=== PATIENT | male | born 1985 ===

== ENCOUNTER 2016-10-18 17:15 | Inpatient (IN) | payer OTHER ==
[~2016-10-18] VITALS: Ht 182.9 cm; Wt 100.0 kg
[2016-10-19] MEDS ORDERED: Benzocaine-Menthol Lozenge 2/Pkg PO PRN (02:10)
[2016-10-19] MEDS ORDERED: Magnesium Hydroxide 10 mL Oral Concentration PO PRN (02:10)
[2016-10-19] MEDS: LORazepam 1 mg Tablet PO PRN ×3 (02:42→10:49)
--- NOTE | 2016-10-19 03:22 | NUR ---
Nursing Admit Note Patient arrival from [place] at 0105 with security screener. Pt is on a 72 hour PASTORA initiated on 10/18/16. Ellis goes by name Rigo is 30 y/o male whom has been deemed danger to self r/t manic and psychotic behavior. Report symptoms ongoing greater than seven days. Pt is unable to give me any meaningful history. He rambles on and on about various disconnected ideas such as work, hearing voices in his head and inability to manage his medications. Pt reports he drinks at least six beer a day, "as much as I can get". Pt appears very anxious at times and believes he may be withdrawing. Pt hesitant and tearful when approached with new medications, easily overwhelmed.
[2016-10-19] MEDS ORDERED: CITA20TA11 PO (04:03)
[2016-10-19] MEDS ORDERED: CLOT30SO TOPICAL (04:04)
[2016-10-19] MEDS ORDERED: FLUT16SP NS (04:05)
[2016-10-19] MEDS ORDERED: HYDR-3090 PO (04:08)
[2016-10-19] MEDS ORDERED: LITH300T2 PO (04:10)
[2016-10-19] MEDS ORDERED: OLAN20TA16 PO (04:10)
[2016-10-19] MEDS ORDERED: OMEP20CA11 PO (04:13)
[2016-10-19] MEDS: hydrOXYzine Pamoate 25 mg Capsule PO PRN (08:03)
[2016-10-19 13:25] VITALS: BP 128/80; PULSE 95
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
--- NOTE | 2016-10-19 18:51 | NUR ---
[id number]. nurs. Pt c/o foot pain and given tylenol 650mg at 0802, with vistaril 50mg for anxiety, stating that he preferred that to a "benzo" with zyprexa 10mg for confused agitated presentation. Pt appearing overwhelmed with difficulty expressing himself, increasingly anxious with latency and needed med and given ativan 2mg at 1049. Pt wandering with some discomfort and confused about being here. Pt given phone to call family and assisted with making calls, then resting on bed. P:CNCP
--- NOTE | 2016-10-19 19:49 | NUR ---
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 He denies S/I and H/I. He reports hearing voices. He denies visual hallucinations. Depression is 10/10 and anxiety is 4-5/10. A: Patient is cooperative, tearful, racing thoughts, delusional, paranoid, disorganized, poor insight, poor judgment. P: Follow care plan, coordinate out-patient providers, monitor behavior.
[2016-10-20] MEDS: LORazepam 1 mg Tablet PO PRN ×2 (03:33→19:55)
--- NOTE | 2016-10-20 04:07 | NUR ---
Nursing Noc Pt noted to sleep for about six hours then awoke c/o startling awake feeling and foot discomfort. Medicated for both and given snack. Pt presented tearful initially and anxious but appeared to calm and relax in DR. Continuing to monitor mood behavior and emotional state. CP Q15 minute safety checks.
--- NOTE | 2016-10-20 05:30 | NUR ---
NOC OBS Pt asleep [id number]. Pleasant but wanting to know where he was and how he got here/when he could leave. Staff reassured him of place and that the DR would be in in the morning. Pt observed every 15 minutes as ordered.
--- NOTE | 2016-10-20 13:38 | PCM.PNPSY ---
Subjective Date of Service Oct 20, 2016 Subjective I spent 30 minutes both reviewing his treatment plan and providing supportive and educational psychotherapy. I spent more than 50% of the time counseling the patient. I reviewed the treatment plan with the patient and discussed options available including the potential risks, benefits and side effects. Ellis reports difficulty with high anxiety 8 out of 10 and still struggling with thought disorganization. The Staff reports that he has been active and is participating well in one-to-one unit and group activities. He slept 5 hours. He denies medication side effects. Patient was able to identify his medications and what they were used to treat. Current Medications Current Medications Acetaminophen 650 mg Q4H PRN PO Last administered on 10/20/16 03:33; Admin Dose 650 MG; Start 10/19/16 at 02:10 Hydroxyzine Pamoate 50 mg Q4H PRN PO Last administered on 10/19/16 08:03; Admin Dose 50 MG; Start 10/19/16 at 02:10 Lorazepam 1-2 MG Q4H PRN PO Last administered on 10/20/16 03:33; Admin Dose 2 MG; Start 10/19/16 at 02:15 Nicotine 1 patch DAILY TOPICAL Last administered on 10/20/16 09:11; Admin Dose 1 PATCH; Start 10/19/16 at 08:30 Nicotine Polacrilex 2 mg Q6H PRN BUCCAL Last administered on 10/19/16 08:01; Admin Dose 2 MG; Start 10/19/16 at 02:15 Olanzapine 10 mg BID PO Last administered on 10/20/16 08:14; Admin Dose 10 MG; Start 10/19/16 at 20:30 Olanzapine 10 mg Q4H PRN PO Last administered on 10/19/16 08:05; Admin Dose 10 MG; Start 10/19/16 at 02:15 Mental Status Exam Appearance: Neat/well groomed Attitude: Guarded Behavior: Distractible Affect: Labile Mood: Expansive, Anxious, Fearful Thought Process/Associations: Goal Directed Speech Production: Normal Speech Rate: Normal Speech Articulation: Normal Thought Content: Perseveration Danger to Self/Suicidal Ideati: Passive, Plan Danger to Others: None Orientation: Person, Place, Date, Situation Memory: Grossly Intact Estimate Intellectual Function: Average Basis for IQ estimate: Awareness current events, Word use/vocabulary, Educational history Attention/Concentration & Cogn: Impaired Insight: Limited Judgement: Limited Mental Health Plan The patient is a 30-year-old single male who 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 He was in fact using drugs (cocaine narcotics and cannabis) and continues to use basically anything that is put in front of him including marijuana, cocaine, narcotics and especially over the counter cough syrup such as NyQuil. All of his symptoms could be explained by the substance use but there is also a diagnosis of schizophrenia in his chart. It is possible that with sobriety and close supervision that symptoms of schizophrenia may also be present. At this time he is so impaired and the recreational drugs are such an issue that we will need to re-evaluate him once he has recovered from current episode. He appears to be making slow but gradual progress over the last 48 hours. [place] AXIS I 1. Preliminary substance induced mood and thought disorder due to THC, narcotics, cocaine and xhvt-hkb-wecveey cough syrup. 2. Rule out schizophrenia. 3. Polysubstance abuse. AXIS II Defer. AXIS III None. AXIS IV Moderate. AXIS V Current global assessment of functioning equal to 30. Medications Treatments Patient is being provided with a high degree of safety through the structure and active adult engagement. We will focus on developing improved coping skills and identifying stressors that may have led to current episode. We will attempt to: Integrate into therapeutic groups, milieu and individual therapy. Maintain in a closely monitored and structured unit Provide low-stimulation environment Obtain collateral data to assist in treatment planning Assess degree of lability of affect and impulse control Complete safety plan Decrease frequency of relapse and need for re-hospitalization Denies thoughts of harm to self Establish a consistent sleep pattern Medication effective in stabilization of mood and/or thought process Reduce the risk of imminent harm to self and/or others by providing a safe environment Tolerates medication without side effects Patient will be on the following psychiatric medications: Zyprexa 10 mg twice a day Education: Educate patient about recreational drug use as an etiology Educate about metabolic etiologies related to obesity Address patient's legal status Patient is on a 72 hour involuntary treatment hold. Patient will be given the opportunity to talk to her biology instructor and the tuckpointer Monday morning Disposition: Home, Duncan Antonio MD Oct 20, 2016 13:38
--- NOTE | 2016-10-20 17:30 | NUR ---
[id number]. nurs. S: "I know I have to stay here and take my medication until I am better...I know I have got to stop using drugs.. O: Pt states that he has been experiencing AHs that are negative but that various unit activities are effective for distracting him, such as ball and video games, playing cards by self. Pt states that he has been in touch with family and they are encouraging him to stay and get help. Pt states that some of the periodic loud yelling behaviour of peers triggers him and he needs to get away from it. Pt gets tearful when talking of 3 children and gets angry and indignant re. losing his employment. Some of pt's conversation tangential and confusing, some quick changes of mood, some childlike presentation. Pt reports that he feels that he is much better than when admitted. P:CNCP
--- NOTE | 2016-10-20 18:58 | NUR ---
Digital Sales Manager/Counselor: S/O: Patient only slept 5.75+ hours last night as per staff. He denies S/I and H/I. He also denies auditory and visual hallucinations. A: Patient is cooperative, guarded, distractable, labile, anxious, fearful, limited insight, limited judgment. P: Follow care plan, coordinate out-patient providers, monitor behavior.
--- NOTE | 2016-10-20 19:26 | NUR ---
Obs Dayshift Pt is calm, participates in groups and activities on the unit. Pt is labile, crying and sad then quickly smiling. Pt is guarded, polite, calm, engaged. Pt appears to be responding to IS at times, but denies it. Pt is frustrated that he is still here and would like to get back home soon. Engages well w/ peers and staff but is superficial and reserved. Good ADL's, Good meals
[2016-10-21] MEDS: LORazepam 1 mg Tablet PO PRN ×3 (00:19→20:26)
--- NOTE | 2016-10-21 04:40 | NUR ---
Nursing Noc Patient presents anxious, labile thought content, delusional of past. Seeks out staff to talk, taking available PRNs as available. Noted to have difficulty getting to sleep this shift. Continuing to monitor mood, behavior, and emotional state. Q15 minuted safety checks.
[2016-10-21 10:08] VITALS: BP 135/83; PULSE 107; RESP 16
--- NOTE | 2016-10-21 11:43 | NUR ---
Nursing Day Shift S: "I'm having more anxiety because I'll be heading into court soon." O: Rating anxiety at a 5/10 with the above comment. States he will alert this staff if he needs any medication for it after lunch. Rates depression at a 5/10. Denies harmful thoughts and hallucinations. Has been out in the dining room much of the AM. Social with peers. Good appetite. Interactive on approach. A: Moderate anxiety. Pleasant mood. Talkative. P: CPOC. Monitor mood and behavior.
--- NOTE | 2016-10-21 12:34 | PCM.PNPSY ---
Subjective Date of Service Oct 21, 2016 Subjective I spent 30 minutes both reviewing his treatment plan and providing supportive and educational psychotherapy. I spent more than 50% of the time counseling the patient. I reviewed the treatment plan with the patient and discussed options available including the potential risks, benefits and side effects. Ellis reports continued difficulty with high anxiety 8 out of 10 and still struggling with thought disorganization. Quite emotionally labile throughout my session. The Staff reports that he has been active and is participating well in one-to-one unit and group activities. He slept 6 hours over the past 24. He denies medication side effects. Patient was able to identify his medications and what they were used to treat. Current Medications Current Medications Olanzapine 10 mg BID PO Last administered on 10/21/16t 07:57; Admin Dose 10 MG; Start 10/19/16 at 20:30 Mental Status Exam Appearance: Neat/well groomed Attitude: Guarded Behavior: Distractible Affect: Labile Mood: Expansive, Anxious, Fearful Thought Process/Associations: Goal Directed Speech Production: Normal Speech Rate: Normal Speech Articulation: Normal Thought Content: Perseveration Danger to Self/Suicidal Ideati: Passive, Plan Danger to Others: None Orientation: Person, Place, Date, Situation Memory: Grossly Intact Estimate Intellectual Function: Average Basis for IQ estimate: Awareness current events, Word use/vocabulary, Educational history Attention/Concentration & Cogn: Impaired Insight: Limited Judgement: Limited Mental Health Plan The patient is a 30-year-old single male 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 He was in fact using drugs (cocaine narcotics and cannabis) and continues to use basically anything that is put in front of him including marijuana, cocaine, narcotics and especially over the counter cough syrup such as NyQuil. All of his symptoms could be explained by the substance use but there is also a diagnosis of schizophrenia in his chart. It is possible that with sobriety and close supervision that symptoms of schizophrenia may also be present. At this time he less impaired and the main issue and discharge will be how he deals with recreational drugs. He appears to be making slow but gradual progress over the last 72 hours. [place] AXIS I 1. Preliminary substance induced mood and thought disorder due to THC, narcotics, cocaine and rijm-lih-rowtlpp cough syrup. 2. Rule out schizophrenia. 3. Polysubstance abuse. AXIS II Defer. AXIS III None. AXIS IV Moderate. AXIS V Current global assessment of functioning equal to 35. Medications Treatments Patient is being provided with a high degree of safety through the structure and active adult engagement. We will focus on developing improved coping skills and identifying stressors that may have led to current episode. We will attempt to: Integrate into therapeutic groups, milieu and individual therapy. Maintain in a closely monitored and structured unit Provide low-stimulation environment Obtain collateral data to assist in treatment planning Assess degree of lability of affect and impulse control Complete safety plan Decrease frequency of relapse and need for re-hospitalization Denies thoughts of harm to self Establish a consistent sleep pattern Medication effective in stabilization of mood and/or thought process Reduce the risk of imminent harm to self and/or others by providing a safe environment Tolerates medication without side effects Patient will be on the following psychiatric medications: Zyprexa 10 mg twice a day Education: Educate patient about recreational drug use as an etiology Educate about metabolic etiologies related to obesity Address patient's legal status Patient is on a 72 hour involuntary treatment hold that was postponed until next Monday. Patient will be given the opportunity to talk to her wafer cleaner and the sr. payroll processor Monday Disposition: [place], Duncan Antonio MD Oct 21, 2016 12:33 Duncan Fernandez MD Oct 21, 2016 12:33
[2016-10-21] MEDS: Alum-Mag Hydrox-Simeth 30 mL Suspension PO PRN (15:55)
[2016-10-21] MEDS: hydrOXYzine Pamoate 25 mg Capsule PO PRN (17:44)
--- NOTE | 2016-10-21 18:03 | NUR ---
[facility] [[email or web address]] Day Shift Pt maintained behavioral control throughout the shift. Pt affect appears mostly flat, though appears much brighter when engaged with staff and peers. Pt affect is occasionally labile, ranging from mildly tearful to excitable. Pt spends most of the shift engaging in unit activities, interacting with staff and peers, and watching TV in the dining room. Pt attended all meals and ate approx 100% of all meals.
--- NOTE | 2016-10-21 18:57 | NUR ---
Compliance Technician/Counselor: S: "My meds are helping me a lot." O: Patient only slept 3+ hours last night as per staff. He denies S/I and H/I. He also denies auditory and visual hallucinations. Depression is "mild" and anxiety is "I'm fine with the anxiety meds." When asked his mood, patient stated, "Good." A: Patient is cooperative, guarded, distractable, labile, anxious, limited insight, limited judgment. P: Follow care plan, coordinate out-patient providers.
--- NOTE | 2016-10-22 06:00 | NUR ---
Nursing Note 7pm to 7am Relocation Commissioner Pt visible on unit, calm, pleasant and cooperative. Pt inquired about the medications he was taking and was provided with med education. Pts thoughts organized, linear and logical. Speech normal rate and rhythm. No psychotic symptoms elicited or observed. Pt given Ambien 10mg for sleep and Ativan 1mg po prn at 2025 and slept 6.5 hours. Monitored pt with q15 minute checks for safety, location and accountability
[2016-10-22] MEDS: LORazepam 1 mg Tablet PO PRN ×3 (07:55→21:08)
[2016-10-22] MEDS: hydrOXYzine Pamoate 25 mg Capsule PO PRN (07:56)
[2016-10-22 10:08] VITALS: BP 152/89; PULSE 107; RESP 16
--- NOTE | 2016-10-22 13:07 | PCM.PNPSY ---
Subjective Date of Service Oct 22, 2016 Subjective I spent 20 minutes both reviewing his treatment plan and providing supportive and educational psychotherapy. I spent less than 50% of the time counseling the patient as he was quite irritable and not wanting to speak. He is angry about the correction process and needing to stay until Monday. I reviewed the treatment plan with the patient and discussed options available including the potential risks, benefits and side effects. Ellis reports that he will not talk with me until court on Monday. He appears to be still struggling with thought disorganization and emotional lability likely due to withdrawals from polysubstance abuse. He was Quite emotionally labile throughout my session. The Staff reports that he has been active and is participating well in one-to-one unit and group activities. He slept 8 hours over the past 24. He denies medication side effects. Patient was able to identify his medications and what they were used to treat. Mental Status Exam Vital Signs Vital Signs Date Time Temp Pulse Resp B/P Pulse Ox O2 Delivery O2 Flow Rate FiO2 10/22/16 10:08 36.4 107 16 152/89 Appearance: Neat/well groomed Attitude: Guarded Behavior: Distractible Affect: Labile Mood: Expansive, Anxious, Fearful Thought Process/Associations: Goal Directed Speech Production: Normal Speech Rate: Normal Speech Articulation: Normal Thought Content: Perseveration Danger to Self/Suicidal Ideati: Passive, Plan Danger to Others: None Orientation: Person, Place, Date, Situation Memory: Grossly Intact Estimate Intellectual Function: Average Basis for IQ estimate: Awareness current events, Word use/vocabulary, Educational history Attention/Concentration & Cogn: Impaired Insight: Limited Judgement: Limited Mental Health Plan The patient is a 30-year-old single male who 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 He is very proud of the fact that he is a STRUCTURAL METAL WORKER and was extremely upset when he was recently fired for suspected drug use. He was in fact using drugs (cocaine narcotics and cannabis) and continues to use basically anything that is put in front of him including marijuana, cocaine, narcotics and especially over the counter cough syrup such as NyQuil. All of his symptoms could be explained by the substance use but there is also a diagnosis of schizophrenia in his chart. It is possible that with sobriety and close supervision that symptoms of schizophrenia may also be present. At this time he less impaired and the main issue and discharge will be how he deals with recreational drugs. Ellis was irritable and appears to be withdrawing from different street drugs. Was difficult to engage him In any meaningful way. [place] AXIS I 1. Preliminary substance induced mood and thought disorder due to THC, narcotics, cocaine and foks-jil-yjyfbik cough syrup. 2. Rule out schizophrenia. 3. Polysubstance abuse. AXIS II Defer. AXIS III None. AXIS IV Moderate. AXIS V Current global assessment of functioning equal to 35. Medications Treatments Patient is being provided with a high degree of safety through the structure and active adult engagement. We will focus on developing improved coping skills and identifying stressors that may have led to current episode. We will attempt to: Integrate into therapeutic groups, milieu and individual therapy. Maintain in a closely monitored and structured unit Provide low-stimulation environment Obtain collateral data to assist in treatment planning Assess degree of lability of affect and impulse control Complete safety plan Decrease frequency of relapse and need for re-hospitalization Denies thoughts of harm to self Establish a consistent sleep pattern Medication effective in stabilization of mood and/or thought process Reduce the risk of imminent harm to self and/or others by providing a safe environment Tolerates medication without side effects Patient will be on the following psychiatric medications: Zyprexa 10 mg twice a day Education: Educate patient about recreational drug use as an etiology Educate about metabolic etiologies related to obesity Address patient's legal status Patient is on a 72 hour involuntary treatment hold that was postponed until next Monday. Patient will be given the opportunity to talk to her hot mill tin roller and the ribbon hanking machine operator Monday Disposition: Home, Duncan Antonio MD Oct 22, 2016 13:06
--- NOTE | 2016-10-22 13:52 | NUR ---
Barbering Instructor./ c.m. S.:"My mood is good, I'm just sad because I miss my children... I just want to go home." O.: met with pt. in a private room. He slept well last night. He denied SI/HI, denied AH/VH or paranoid/delusional thoughts. He denied anxiety and rated depression at 5/10. He talked about his children, his ex-g.f.s and his family that he doesn't like much. He wasn't sure if it was a good idea to go back to [place] or not. He didn't believe that he had a problem with drugs. He believed that his "family has a lot of mental health issues, they just don't want to talk about it." He believed that he didn't need to be here. He also believed that he needed more meds for his medical issues related to pain. Pt.'s sister called here in the morning and she said that she would be able to come to pick pt. up at time of discharge. Pt. was in and out of his room during the day. He is talking to selected peers. A.: pt. is cooperative, tearful at times, meds seeking. He has a flat affect and a good eye contact. P.: monitor behavior, check Safety plan; follow care plan.
--- NOTE | 2016-10-22 18:36 | NUR ---
Nursing Dayshift: S: "I'm having a really good lunch." O: Patient out of his room much of the shift. Social with peers. Bright and cheery attitude. Med compliant. Attending unit activities. A: Pleasant. P: CPOC. Monitor mood and behavior.
[2016-10-23] MEDS: Alum-Mag Hydrox-Simeth 30 mL Suspension PO PRN ×2 (04:47→15:12)
--- NOTE | 2016-10-23 05:33 | NUR ---
Nursing Note 7pm- 7am Napkin Band Wrapper Pt Visible on unit, superficially smiling, pleasant, calm and cooperative. Pt reported he was anxious for discharge and was just "Laying low". Pt reported anxiety 01/02 requested Ativan 2mg po prn with HS meds and received Ambien 10mg for sleep. Pt denies depressive symptoms, denies A/VH. Thoughts organized and linear. Monitored pt. q 15 minutes for safety, location and accountability. Pt slept soundly until 0445 when he woke up for the day. Slept total of 6.25 hours
[2016-10-23 08:40] VITALS: BP 142/90; PULSE 109; RESP 17
--- NOTE | 2016-10-23 13:16 | PCM.PNPSY ---
Subjective Date of Service Oct 23, 2016 Subjective I spent 20 minutes both reviewing his treatment plan and providing supportive and educational psychotherapy. I spent less than 50% of the time counseling the patient as he remains quite irritable and not wanting to speak. He is angry about the [facility] process and needing to stay until Monday. I reviewed the treatment plan with the patient and discussed options available including the potential risks, benefits and side effects. Ellis reports that he is still struggling with thought disorganization and emotional lability likely due to withdrawals from polysubstance abuse. He was emotionally labile throughout my session. The Staff reports that he has been active and is participating well in one-to-one unit and group activities. He slept 8 hours over the past 24. He denies medication side effects. Patient was able to identify his medications and what they were used to treat. Mental Status Exam Appearance: Neat/well groomed Attitude: Guarded Behavior: Distractible Affect: Labile Mood: Expansive, Anxious, Fearful Thought Process/Associations: Goal Directed Speech Production: Normal Speech Rate: Normal Speech Articulation: Normal Thought Content: Perseveration Danger to Self/Suicidal Ideati: None Danger to Others: None Orientation: Person, Place, Date, Situation Memory: Grossly Intact Estimate Intellectual Function: Average Basis for IQ estimate: Awareness current events, Word use/vocabulary, Educational history Attention/Concentration & Cogn: Impaired Insight: Limited Judgement: Limited Mental Health Plan The patient is a 30-year-old single male 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 He was in fact using drugs (cocaine narcotics and cannabis) and continues to use basically anything that is put in front of him including marijuana, cocaine, narcotics and especially over the counter cough syrup such as NyQuil. All of his symptoms could be explained by the substance use but there is also a diagnosis of schizophrenia in his chart. It is possible that with sobriety and close supervision that symptoms of schizophrenia may also be present. At this time he less impaired, continues to make slow but steady progress and the main issue after discharge will be how he deals with a serious addiction to recreational drugs. Ellis was irritable and appears to be withdrawing from different street drugs. It has been difficult to engage him in any meaningful way. He will likely be ready For discharge in 48-72 hours. [place] AXIS I 1. Preliminary substance induced mood and thought disorder due to THC, narcotics, cocaine and cnnr-ohq-aicdirl cough syrup. 2. Rule out schizophrenia. 3. Polysubstance abuse. AXIS II Defer. AXIS III None. AXIS IV Moderate. AXIS V Current global assessment of functioning equal to 35. Medications Treatments Patient is being provided with a high degree of safety through the structure and active adult engagement. We will focus on developing improved coping skills and identifying stressors that may have led to current episode. We will attempt to: Integrate into therapeutic groups, milieu and individual therapy. Maintain in a closely monitored and structured unit Provide low-stimulation environment Obtain collateral data to assist in treatment planning Assess degree of lability of affect and impulse control Complete safety plan Decrease frequency of relapse and need for re-hospitalization Denies thoughts of harm to self Establish a consistent sleep pattern Medication effective in stabilization of mood and/or thought process Reduce the risk of imminent harm to self and/or others by providing a safe environment Tolerates medication without side effects Patient will be on the following psychiatric medications: Zyprexa 10 mg twice a day Education: Educate patient about recreational drug use as an etiology Educate about metabolic etiologies related to obesity Address patient's legal status Patient is on a 72 hour involuntary treatment hold that was postponed until next Monday. Patient will be given the opportunity to talk to her stable cleaner and the mobile home lot utility worker Monday Disposition: Chasidy Delacruz Vance MD Oct 23, 2016 13:16
[2016-10-23] MEDS: LORazepam 1 mg Tablet PO PRN (15:12)
--- NOTE | 2016-10-23 16:45 | NUR ---
Pourer Metal./ c.m. S.:"I'm feeling very good and I'm ready to go home. I don't need to be here because I have court in [place]. I don't want to go to court here! Just let me go." O.: met with pt. in his room. He "slept very hard and had nightmares all night". He said that he had night sweats because of "going through withdrawal". He talked about his drug use and his concerns about legal issues. He denied SI/HI, denied AH/VH or paranoid/delusional thoughts, denied depression or anxiety. He said that "going back home won't be safe" for him but he didn't have other choice. He said that he knew all resources in his community. He was aware of follow up treatment. He talked to his sister who was going to take him back home. His sister called today and she asked to be notified as soon as possible about pt.'s date of discharge. He was in and out of his room during the day. He went on a patio for some time also. He became more angry and agitated during the conversation and he apologized to the video game script writer after that. A.: pt. is cooperative, unpredictable, guarded and manipulative. P.: monitor behavior, monitor for withdrawal, provide safety in the unit; follow care plan.
--- NOTE | 2016-10-23 17:50 | NUR ---
Observations [id number] Pt was asleep upon start of shift. Pt is friendly with other patients and staff and very social. He attended groups, working on art projects and sharing with other patients about his reasons for being here and his struggles at home. 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 He attended all meals, eating 100%. He made phone calls in the afternoon. He was observed every 15 minutes of shift as directed.
--- NOTE | 2016-10-23 18:36 | NUR ---
Nursing Dayshift: S/O: Patient has been calm and cooperative this shift other than a period of irritability reported mid afternoon. Received Ativan 2 mg PO and a Maalox liquid 1512. Calmer within the hour. Social with peers. Watched some TV today. Spent some time out on the patio with peers. A: Med compliant. Appears bored. P: CPOC. Monitor mood and behavior.
[2016-10-23] MEDS: hydrOXYzine Pamoate 25 mg Capsule PO PRN (20:48)
--- NOTE | 2016-10-23 22:31 | NUR ---
Nurses PRN Patient received Ambien 10mg for sleep,fast food shift lead to assess response.
[2016-10-24] MEDS: Alum-Mag Hydrox-Simeth 30 mL Suspension PO PRN (02:11)
[2016-10-24] MEDS: LORazepam 1 mg Tablet PO PRN ×3 (02:15→20:04)
--- NOTE | 2016-10-24 06:10 | NUR ---
Nursing 7p-7a Pt maintained behavioral control. Spent time out on the unit participating in unit activities. Cooperative and responsive to care. Took his scheduled HS medication along with Weiien for sleep. Pt slept from [id number] and reported difficulty maintaining sleep. He received Ativan 2mg po prn @ 0215 with good effect. He was able to return back to sleep by 0300 with no further distress or awakening per protocol checks. Total sleep 5.5+ hours.
[2016-10-24 09:00] VITALS: BP 146/94; PULSE 116; RESP 17
--- NOTE | 2016-10-24 16:41 | NUR ---
Air Cargo Ground Operations Supervisor./ c.m. S.:"I'm ready to be discharged." O.: met with pt. and MD together in the group room. Pt. asked for discharge home today. He denied SI/HI, denied AH/VH - he said "I hear only voices of my family members". He denied racing thoughts, rted depression at 10 and anxiety at 04/04. He was concerned about his court date that was scheduled for Monday in [place]. He said that he would follow up with [facility] in [place]. Manager Acquisition left a message for pt.'s sister Norma ([phone]) about pt.'s discharge tomorrow. Manager Acquisition also called [facility] in [place] and scheduled pt.'s follow up. A.: pt. is isolative, quiet, cooperative. P.: monitor behavior, discharge tomorrow by 12:30 pm, check Safety plan; follow care plan.
--- NOTE | 2016-10-24 17:40 | NUR ---
Observations [id number] Pt was asleep upon start of shift. He is very concerned about discharge, and missing a trip he has planned next week for [place] ([place]). Pt was very anxious throughout the day. He did attend groups and spent the majority of the day talking with pt's and staying active and busy. 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 Pt attended all meals, eating 100%. Pt has court tomorrow and has stated that he is nervous about the outcome and potentially staying longer. "I don't want to see the photo technologist again." Pt was observed every 15 minutes of shift as directed.
--- NOTE | 2016-10-24 20:41 | NUR ---
Nursing Day shift: Rigo was out on the unit for about 50% of shift. participated in group activities in RT room. He complained of pain in hip leg and back several times and received tylenol 650 mg at 1249 and again at 1715. Also used hot packs to area. Moderate relief from Tylenol. Was tearful "I'm worried about my family" at 1249 and received Ativan for anxiety 1 mg at 10/10 level. In 1/2 hour, anxiety was reduced to 5/10. A: Behavioral self-control while on open unit. P: Continue to assess for med effectiveness.
--- NOTE | 2016-10-25 00:14 | PCM.PNPSY ---
Subjective Date of Service October 24, 2016 Subjective The patient reports that his sister is in the area and will drive him back to [place]. He reports having a conflicted relationship with his siblings but is willing to put these aside as she is helping him to return home. He reports that prior to hospitalization he was going from ER to ER without much help. He reported racing thoughts in the workplace ultimately caused him to lose his job. He minimized substance contribution but did report that he wanted to rebuild relationships and to "apologize to the people that I have hurt." He reports that he is also trying to cope with the of his grandfather. He denied medication side effects but appeared rather ambivalent about their efficacy. He plans to [facility] to outpatient care with [facility]. Sleep: 4.5 hours Appetite: "good" Suicidal and homicidal ideation: denies Auditory hallucinations: denies Visual hallucinations: denies Other Psychotic Symptoms: N/A Anxiety: 10 Depression: initially 10/10 but after re-explanation of scale, 11/02. Mental Status Exam Appearance: Neat/well groomed Attitude: Cooperative, Guarded Behavior: No unusual behavior Affect: Restricted Mood: Irritable (mildly) Thought Process/Associations: Goal Directed Speech Production: Normal Speech Rate: Normal Speech Articulation: Normal Thought Content: Perseveration Danger to Self/Suicidal Ideati: None Danger to Others: None Hallucinations: Auditory (Denies), Visual (Denies) Orientation: Person, Place, Date, Situation Memory: Grossly Intact Estimate Intellectual Function: Average Basis for IQ estimate: Awareness current events, Word use/vocabulary, Educational history Attention/Concentration & Cogn: Impaired Insight: Limited Judgement: Limited Mental Health Plan The patient is a 30-year-old single male 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 He has an extensive history of substance use including marijuana, cocaine, narcotics and especially over the counter cough syrup such as NyQuil. In addition to his history of substance use , he also carries a diagnosis of schizophrenia. The patient is still experiencing some irritability and guarding, so full assessment of residual psychotic symptoms will have to wait for a longer period of sobriety. [place] AXIS I 1. Preliminary substance induced mood and psychotic disorder due to THC, narcotics, cocaine and wwuh-pov-hyeoolh cough syrup. 2. Rule out schizophrenia. 3. Polysubstance abuse. AXIS II Defer. AXIS III None. AXIS IV Moderate. AXIS V Current global assessment of functioning equal to 35. Medications Olanzapine 10mg po bid. Treatments 1. The patient is admitted to the inpatient unit and will be provided a safe and secure environment. 2. The patient is denying current active suicidality and is not in need of a one-to-one at this time. 3. The patient is encouraged to participate with group and milieu activities. 4. The patient will be seen by the treatment team on a daily basis to assess symptoms, side effects and response to treatment. 5. Continue current medications. 6. The patient appears to be stabilizing and may not meet grounds for further long term by court time. 7. The patient is in need of further substance treatment on discharge. 8. Anticipated length of stay is 2-3 days. Connor Morris MD October 24, 2016 22:20
[2016-10-25] MEDS: LORazepam 1 mg Tablet PO PRN (04:38)
[2016-10-25] MEDS: Alum-Mag Hydrox-Simeth 30 mL Suspension PO PRN (04:38)
--- NOTE | 2016-10-25 05:42 | NUR ---
Nursing 7p-7a Pt pleasant, cooperative and social with peers. He was present out on the unit. Took scheduled HS medication along with prn Ambien for sleep. He slept from [id number] for a total of 6 hours. He reports he had nightmares and thought it was the Ambien b/c nightmares are not normal for him. He c/o stomach upset and mild anxiety related to another female peer up at that time. Stating "She is a little wild for me. I think I will keep my distance." He received Maalox 10ml po and Ativan 1mg sublingual with moderate effect. Later in the morning he c/o low back pain and received Tylenol 650mg po prn. He is anticipating discharge today into the care of his sister.
--- NOTE | 2016-10-25 09:56 | NUR ---
High Risk Case Manager./ c.m. S.:"I'm ready to go home." O.: pt. completed Safety plan. He denied SI/HI, denied AH/VH or paranoid/delusional thoughts, denied depression. He has follow up appts for medications and case managements with CLEVELAND Acosta on October 28 @ 9:30 am and SITA Israel on October 31 @ 2:00 pm at [facility] in [place] ([phone]). His prescriptions has to be faxed to [facility] on [address] in [place]. Family friend will come today around 12:30 to pick pt. up and take him home. Pt.'s sister Norma told specification writer yesterday that pt. has a lot of family support in [place]. A.: pt. is cooperative, quiet, waiting for his discharge. P.: monitor behavior, follow care plan.
--- NOTE | 2016-10-25 11:19 | PCM.DIMED ---
Discharge Instructions Date of Service October 25, 2016 Dates of Hospitalization Oct 19, 2016 at 01:24 Discharge Diagnosis Discharge Diagnosis AXIS I 1. Substance induced mood and psychotic disorder due to THC, narcotics, cocaine and nsbx-nhr-oygwyou cough syrup. 2. Rule out schizophrenia, by history. 3. Polysubstance use disorder. AXIS II Defer. AXIS III None. AXIS IV Moderate. AXIS V Current global assessment of functioning equal to 50. Diet No restrictions Activity No restrictions Patient Instructions Should you have any thoughts of harming yourself or others, please call the crisis line, your provider, 911, or go to the nearest Emergency Department. Do not change or discontinue your medications without discussing with your provider. You have been given a prescription for your medication Follow-up plan Provider CLEVELAND Acosta on on 10/28/16 at 09:30am [facility] [address] [id number] Lieutenant Shift Supervisor SITA Israel on on 10/31/16 at 2pm [facility] [address] [id number] Connor Morris MD October 25, 2016 11:19
[2016-10-25] MEDS ORDERED: ZOLP10TA5 PO (11:29)
[2016-10-25] MEDS ORDERED: OLAN10TA19 PO (11:29)
[2016-10-25] MEDS ORDERED: LORA-303 PO (11:29)
--- NOTE | 2016-10-25 13:27 | NUR ---
Nursing; Day shift: And Discharge. Rigo was up and around the unit early today. He gathered belongings, went to court, and signed all discharge papers. Stated " maybe I can get my license back. 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 Oriented. No erquests for any more prn meds. Stated that tylenol earlier this a.m. was effective for pain relief in leg. Prescriptions faxed to [facility] pharmacy in [place]. Left unit, unaccompanied, at 1205, to meet family at [facility] entrance.
--- NOTE | 2016-10-27 22:53 | PCM.DC.MED ---
Discharge Summary Date of Service October 25, 2016 Dates of Hospitalization Date of Hospital Admission Oct 19, 2016 at 01:24 Date of Discharge: October 25, 2016 Providers: Admitting Physician: Jeremi Caraballo DO Primary Care Physician: Fatemeh Attending Physician: Jeremi Caraballo DO Diagnosis at Time of Discharge Diagnosis at Time of Discharge AXIS I 1. 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 2. Rule out schizophrenia, by history. 3. Polysubstance use disorder. AXIS II Defer. AXIS III None. AXIS IV Moderate. AXIS V Current global assessment of functioning equal to 50. Brief History Per Dr. Fernandez's initial H&P: IDENTIFICATION: The patient is a 30-year-old single, white male, currently homeless. 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 He lives in the [place] area. REASON FOR ADMISSION: Client presented to the [facility] ED with multiple symptoms of jericho and psychosis. HISTORY OF PRESENT ILLNESS: Client presents today on a 72 hour involuntary treatment hold for evaluation of psychosis and jericho. I met with him for a 60 minute evaluation and reviewed course and records kept by both [facility] and [facility] in [place]. Client's main issue is substance abuse. Co-occurring issues are reported history of schizophrenia. The condition is acute and has been developing over the past five days. At present , it is of a severe intensity manifesting with symptoms of distractibility, racing thoughts, poor sleep, paranoia, auditory hallucinations and disorganized thought. His mood is extremely labile. All the above is made worse by poor sleep, interpersonal relationship conflicts and drug use. He recently was fired from his job for suspected drug use and this is very disturbing to him. He is estranged from his family, the mother of his child and three children, ages 7, 9 and 10. Finally his urine tox over the past five days has been positive intermittently for cocaine, narcotics and THC. The most important issue, however, did not show up on the drug screen. Client states he has been drinking NyQuil in order to get high from the dextromethorphan in this substance. He has been drinking this and driving his pedal bike around town. The client did acknowledge that he is drinking, drugging and using cocaine. He is currently presenting with signs of extreme emotional liability, moderate cognitive deficits and significant impairment in coping, judgment, insight and reality testing. Hospital Course The patient was initially quite labile, paranoid, and hallucinating. The patient was placed on olanzapine 10mg twice daily with as need lorazepam, and zolpidem. The patient remained paranoid with poor insight during the initial part of his stay and was perseverating on discharge but began showing increased insight and more normative behavior by the time of discharge. He denied side effects to medications. He reported that he was concerned about having a possible STD but would follow up with his outpatient provider. At the time of discharge, he was reporting his sleep as 6+ hours, his appetite was good, anxiety was rated as 5/10 "excited" and depression was 3/10. He denied any auditory or visual hallucinations, paranoia, and any thought, plan, or intent of harming himself or others. Exam Vital Signs (Last) Date Time Temp Pulse Resp B/P Pulse Ox O2 Delivery O2 Flow Rate FiO2 10/24/16 09:00 36.4 116 17 146/94 Exam Discharge Mental Status Exam Appearance: Neat/well groomed Attitude: Cooperative, Pleasant Behavior: No unusual behavior Affect: Restricted Mood: anxious for discharge Thought Process/Associations: Goal Directed Speech Production: Normal Speech Rate: Normal Speech Articulation: Normal Thought Content: Perseveration Danger to Self/Suicidal Ideation: None Danger to Others: None Hallucinations: Auditory (Denies), Visual (Denies) Orientation: Person, Place, Date, Situation Memory: Grossly Intact Estimate Intellectual Function: Average Basis for IQ estimate: Awareness current events, Word use/vocabulary, Educational history Attention/Concentration & Cognition: Grossly intact Insight: Improving Judgement: Improving Discharge Medications Discharge Medications Clotrimazole 1% (Clotrimazole 1%) 30 Ml Solution 30 ML TOPICAL BID (Reported) Fluticasone Propionate (Fluticasone Propionate Nasal) 16 Gm Peak.susp 1 SPRAY NS BID (Reported) Olanzapine (Olanzapine) 10 Mg Tablet 10 MG PO BID Prescribed by: CONNOR MORRIS MD Omeprazole (Omeprazole) 20 Mg Capsule.dr 20 MG PO DAILY (Reported) As needed Lorazepam (Ativan) 1 Mg Tablet 1 MG PO BID PRN PRN For Anxiety or Agitation Prescribed by: CONNOR MORRIS MD Zolpidem (Zolpidem) 10 Mg Tablet 10 MG PO HS PRN PRN For Insomnia Prescribed by: CONNOR MORRIS MD Followup Plan Disposition: The patient is discharged to home in the care of his sister. Follow-up plan Provider CLEVELAND Acosta on on 10/28/16 at 09:30am [facility] [address] [place] [address] Rn Clinical Appeals SITA Israel on on 10/31/16 at 2pm [facility] [address] [place] [address] Discharge Diet: No restrictions Discharge Activity: No restrictions Patient Instructions Should you have any thoughts of harming yourself or others, please call the crisis line, your provider, 911, or go to the nearest Emergency Department. Do not change or discontinue your medications without discussing with your provider. You have been given a prescription for your medication Connor Morris MD October 25, 2016 23:20
== END 2016-10-25 12:05 | disposition home or self-care (01) | DRG 897 ==
LOC: MHC 10-19 01:24
PROVIDERS: ADMIT Psychiatry & Neurology Psychiatry; ATTEND Psychiatry & Neurology Psychiatry
DX: F19.14 Other psychoactive substance abuse with psychoactive substance-induced mood disorder (principal); Z59.0 Homelessness; Z62.819 Personal history of unspecified abuse in childhood